=== PATIENT | male | born 1965 | race Caucasian/White ===

== ENCOUNTER → 2016-11-19 | Outpatient (CLI) | payer BC ==
[~2016-11-19] MED LIST: 00186-0372-20 IH; ASPIRIN 32325 MG/TAB PO; B-12 100 MCG PO; B-12500 MCG PO; BENADRYL50 MG PO; CLARITIN 1010 MG/TAB PO; CLEOCIN HCL300 MG PO; COUMADIN5 MG PO; CUBICIN 500MG500 MG IV; DIFLUCAN 100MG100 MG PO; DOXYCYCLINE 10100 MG PO; FLONASEALLERGY NS; GENTAMICIN180 MG/502 NS; IPRATROPIUM BROM3 M1 IH; LEVAQUIN 5500 MG/TA1 PO; LOVENOX 8080 MG/0.8 SQ; MILLIPRED DP5 MG PO; MOBIC15 MG PO; NORCO 325 MG-7.1 TAB PO; NYSTATIN OR100 MU/ML PO; PREDNISONE10 MG; PREDNISONE10 MG PO; PREDNISONE20 MG PO; PRILOSEC 20MG20 MG PO; PROVENTIL0.09 MG/A1 IH; SINGULAIR 110 MG/TAB PO; TYLENOL 500MG500 MG PO; VALIUM 5MG T5 MG/TAB PO; ZYRTEC 10MG10 MG PO
== END ==
LOC: COL.VAS 11-17 08:00
DX: I73.9 Peripheral vascular disease, unspecified (principal); F17.200 Nicotine dependence, unspecified, uncomplicated

== ENCOUNTER 2018-07-30 16:38 | Inpatient (IN) | payer BC ==
[~2018-07-30] VITALS: Ht 170.2 cm; Wt 95.8 kg
[2018-07-30] MEDS ORDERED: CHANTIX 1MG1 MG PO (17:21)
[2018-07-30 17:24] LABS: HEMATOCRIT 46.1 % (42.0-52.0); HEMOGLOBIN 15.5 g/dl (13.5-18.0); MEAN CELL VOLUME 85 fl (80.0-100.0); MEAN CORPUSCULAR HEMOGLOBIN 29 pg (27.0-31.0); MEAN CORPUSCULAR HGB CONC 34 g/dl (33.0-37.0); MEAN PLATELET VOLUME 10.3 fl (7.4-10.4); PLATELET COUNT 220 K/mm3 (130-400); RED BLOOD COUNT 5.44 M/mm3 (4.20-5.60); REDCELL DISTRIBUTION WIDTH-CV 15.3 % (11.5-14.5)
[2018-07-30 17:30] LABS: ALBUMIN 4.1 gm/dL (3.5-5.0); BILIRUBIN,TOTAL 1.3 mg/dL (0.0-1.0); CALCIUM 9.1 mg/dL (8.4-10.2); CREATININE, serum 0.89 mg/dL (0.66-1.25); POTASSIUM 4.2 mmol/L (3.4-5.0); TOTAL PROTEIN 8.2 gm/dL (6.4-8.2)
[2018-07-30 17:41] LABS: C-REACTIVE PROTEIN 16.5 mg/dL (0.0-0.9)
[2018-07-30 17:53] LABS: EOSINOPHIL 1 % (0-4); LYMPHOCYTE 14 % (20.0-51.0); NEUTROPHILS 78 % (42.0-75.2); PLATELET ESTIMATE NORMAL (NORMAL)
--- NOTE | 2018-07-30 20:00 | NUR ---
Pt arrived to room 351, transferred per stretcher by ED staff. Pt awake, a&o, cooperative c cares; at bedside. Pt/ oriented to room, unit policies et current POC. Questions invited et answered, both verbalize understanding. Pt/wi deny needs. Call light in reach. Will continue c admit process.
[2018-07-30 20:19] VITALS: BP 124/64; PULSE 108; TEMP 98.3
[2018-07-30 21:29] LABS: COLLECTION METHOD CLEAN CATCH
[2018-07-30 21:34] LABS: MUCOUS Present /lpf; PH 5 (5-8); SQUAMOUS EPITHELIAL 0-2 /hpf; URINE APPEARANCE Clear; URINE BACTERIA None Seen /hpf; URINE BILIRUBIN Negative (NEGATIVE); URINE BLOOD Negative (NEGATIVE); URINE COLOR Yellow; URINE GLUCOSE Negative (NEGATIVE); URINE KETONE Negative (NEGATIVE); URINE LEUKOCYTE ESTERASE Negative (NEGATIVE); URINE NITRATE Negative (NEGATIVE); URINE PROTEIN(semi-quant) Negative (NEGATIVE); URINE RBC 0-2 /hpf; URINE UROBILINOGEN Negative (NEGATIVE)
[2018-07-30 22:23] LABS: ARTERIAL BLD GAS O2 SATURATION 97.5 % (92-100); ARTERIAL BLD GAS TCO2 CT 19.8; ARTERIAL BLOOD GAS BASE EXCESS -4.3 (-2-2); ARTERIAL BLOOD GAS HCO3 18.9 meq/L (22-26); ARTERIAL BLOOD GAS PCO2 29.9 mmHg (35-45); ARTERIAL BLOOD GAS PO2 111.7 mmHg (80-100); ARTERIAL BLOOD GAS pH 7.42 (7.35-7.45)
[2018-07-30 23:42] VITALS: BP 91/57; PULSE 89; TEMP 97.5
[2018-07-31 04:44] VITALS: BP 123/79; PULSE 95; TEMP 97.6
[2018-07-31] MEDS ORDERED: VITAMIN D 1001000 IU PO (05:59)
[2018-07-31] MEDS ORDERED: ALLEGRA ALLERG180 MG PO (05:59)
[2018-07-31 07:49] VITALS: BP 100/51; PULSE 79; TEMP 98.2
[2018-07-31 08:35] LABS: BASO % 0.2 % (0.0-2.0); EOS % 0.1 % (0-4.0); GRAN # 8.4 (1.4-6.5); GRAN % 74.7 % (42.2-75.2); HEMATOCRIT 42.6 % (42.0-52.0); HEMOGLOBIN 14.2 g/dl (13.5-18.0); LYMPH # 1.5 (1.2-3.4); LYMPH % 13.6 % (20.0-51.0); MEAN CELL VOLUME 85 fl (80.0-100.0); MEAN CORPUSCULAR HEMOGLOBIN 28 pg (27.0-31.0); MEAN CORPUSCULAR HGB CONC 33 g/dl (33.0-37.0); MEAN PLATELET VOLUME 10.6 fl (7.4-10.4); MONO # 1.2 (0.1-0.6); MONO % 10.9 % (1.7-9.3); PLATELET COUNT 187 K/mm3 (130-400); REDCELL DISTRIBUTION WIDTH-CV 14.9 % (11.5-14.5)
[2018-07-31 08:46] LABS: CALCIUM 8.9 mg/dL (8.4-10.2); CREATININE, serum 0.59 mg/dL (0.66-1.25)
--- NOTE | 2018-07-31 09:30 | NUR ---
PT SITTING AT SIDE OF BED. PT A/O X4, COUGHING. CALLED DR. JONES TO GET DIET FOR PT. CALL LIGHT WITHIN REACH.
[2018-07-31 11:27] VITALS: BP 95/70; PULSE 95; TEMP 98.4
--- NOTE | 2018-07-31 11:54 | NUR ---
PT HAD SOME ACID REFLEX AND VOMITED. PT WAS GIVEN MAALOX FOR INDIGESTION.
--- NOTE | 2018-07-31 14:47 | NUR ---
SW met with patient about discharge planning. Patient lives independently at home with his . Patient's PCP is Dr. Woodward and he obtains prescriptions from [facility]. Patient uses [facility] but no other DME is reported and he does not use any home health services. Patient does not have a DPOA and is not interested in completing one at this time. SW does not anticipate any discharge needs.
[2018-07-31 15:42] VITALS: BP 106/63; PULSE 98; TEMP 98.4
--- NOTE | 2018-07-31 18:21 | NUR ---
PT IN BED WITH HOB ELEVATED. PT ATE SUPPER AND ATE 100% OF MEAL. PT ADVISED THAT THAT WAS THE FIRST TIME SINCE TUESDAY THAT HE FELT LIKE EATING AND ACTUALLY ATE ALL HIS FOOD. PT DENIES PAIN OR DISCOMFORT. PT WAS EDUCATED ON MEDICATIONS TAKING. PT CONTINUES TO COUGH AND NOSE STILL HAS CONGESTION. PT USES O2 AT 3L/OXYMASK. PT ADVISED THAT HE USES A CPAP AT NIGHT, BUT SINCE HIS NOSE IS STUFF-UP HE IS UNABLE TO USE HIS CPAP AT NIGHT. PT HAS NO NEEDS OR CONCERNS, CALL LIGHT WITHIN REACH.
[2018-07-31 19:35] VITALS: BP 104/59; PULSE 116; TEMP 99.4
--- NOTE | 2018-07-31 20:12 | NUR ---
Shift assessment complete. Pt resting in bed, awake, a&o, cooperative c cares. Pt denies pain or other c/o at this time. INT patent. Tele in place. PT denies needs. Call light in reach, will monitor.
[2018-08-01 01:00] VITALS: BP 109/57; PULSE 87; TEMP 100
[2018-08-01 04:20] VITALS: BP 104/66; PULSE 100; TEMP 98.5
--- NOTE | 2018-08-01 07:00 | NUR ---
Reported on to LEONA Hu. Assessment: INT in left AC CDI. Shortness of air at 36 resperations per minute. Sat at 96% on RA. Pulse 108. Productive cough with sticky pale yellow sputum. Pt complains of diffuse ache throughout body with headache. Pain 4. Does not want PRN APAP. Telemetry on. No SCDs/TEDs.
[2018-08-01 07:23] LABS: BASO % 0.5 % (0.0-2.0); EOS # 0.1 (0.0-0.7); EOS % 0.9 % (0-4.0); GRAN # 5.3 (1.4-6.5); GRAN % 65.5 % (42.2-75.2); HEMOGLOBIN 12.6 g/dl (13.5-18.0); LYMPH # 1.6 (1.2-3.4); LYMPH % 19.9 % (20.0-51.0); MEAN CELL VOLUME 85 fl (80.0-100.0); MEAN CORPUSCULAR HEMOGLOBIN 29 pg (27.0-31.0); MEAN CORPUSCULAR HGB CONC 34 g/dl (33.0-37.0); MEAN PLATELET VOLUME 11.1 fl (7.4-10.4); MONO % 12.7 % (1.7-9.3); PLATELET COUNT 175 K/mm3 (130-400); RED BLOOD COUNT 4.38 M/mm3 (4.20-5.60)
[2018-08-01 07:32] LABS: CALCIUM 8.5 mg/dL (8.4-10.2); CREATININE, serum 0.79 mg/dL (0.66-1.25); POTASSIUM 3.9 mmol/L (3.4-5.0)
[2018-08-01 08:27] VITALS: BP 125/74; PULSE 107; TEMP 98.2
[2018-08-01 11:01] VITALS: BP 111/67; PULSE 97; TEMP 98.9
[2018-08-01 17:20] VITALS: BP 117/74; PULSE 107; TEMP 98.5
--- NOTE | 2018-08-01 20:23 | NUR ---
Patient resting in bed, given tamiflu. Assessment cmopleted, denies pain. LUng sounds clear, abdminal sounds active, ulses +3. SBA/independent. Alert and oriented. ON droplet precautions for pending RVP and c.diff pending. Given new jug of water. NO further needs at this time.
[2018-08-01 22:09] VITALS: BP 118/65; PULSE 120; TEMP 98.1
[2018-08-02 00:29] VITALS: BP 97/49; PULSE 107; TEMP 98.9
[2018-08-02 03:33] VITALS: BP 120/60; PULSE 105; TEMP 98.5
--- NOTE | 2018-08-02 05:04 | NUR ---
Pt slept on/off last night. Continues to have cough. VSS, afebrile. NO rpeorts of pain. IVF infusing at 125 mls/hr.
--- NOTE | 2018-08-02 07:03 | NUR ---
Report given to LEONA Leung. Patient sitting up n bed watching tv. NO needs at this time.
[2018-08-02 07:27] LABS: HEMATOCRIT 37.1 % (42.0-52.0); HEMOGLOBIN 12.6 g/dl (13.5-18.0); MEAN CELL VOLUME 84 fl (80.0-100.0); MEAN CORPUSCULAR HEMOGLOBIN 29 pg (27.0-31.0); MEAN CORPUSCULAR HGB CONC 34 g/dl (33.0-37.0); MEAN PLATELET VOLUME 10.3 fl (7.4-10.4); PLATELET COUNT 185 K/mm3 (130-400); RED BLOOD COUNT 4.42 M/mm3 (4.20-5.60)
[2018-08-02 07:35] LABS: CALCIUM 8.2 mg/dL (8.4-10.2); CREATININE, serum 0.67 mg/dL (0.66-1.25); POTASSIUM 3.6 mmol/L (3.4-5.0)
[2018-08-02 08:00] VITALS: BP 135/86; PULSE 89; TEMP 97.9
[2018-08-02 08:20] LABS: BAND 10 % (0-10); EOSINOPHIL 3 % (0-4); NEUTROPHILS 36 % (42.0-75.2)
[2018-08-02 08:21] LABS: LYMPHOCYTE 39 % (20.0-51.0); PLATELET ESTIMATE NORMAL (NORMAL)
[2018-08-02] MEDS ORDERED: LEVAQUIN 750MG750 M1 PO (09:20)
[2018-08-02] MEDS ORDERED: TAMIFLU 75MG75 MG PO (09:21)
--- NOTE | 2018-08-02 09:48 | NUR ---
Pt is awake and A/Ox4, sitting up in bed. He remains on room air. He denies pain or discomfort. IVF are infusing into left AC without difficulty. Resp. are even and unlabored at rest. Pt does report productive cough, thin and white. Pt is up as tolerated in room. Pt denies any other needs, will monitor.
--- NOTE | 2018-08-02 11:21 | NUR ---
Pt was discharged home from hospital. All discharge instructions and paperwork was reviewed with pt and , both expressed understanding and had no questions. New prescriptions sent electronically to pharm. Saline lock removed, catheter tip intact. Pt was escorted out of facility by staff.
== END 2018-08-02 11:38 | disposition home or self-care (01) | DRG 871 ==
LOC: COL.ER 16:38 → MEDICAL 19:12
PROVIDERS: Emergency Medicine; Physician Assistant; ADMIT Internal Medicine
DX: A41.9 Sepsis, unspecified organism (principal); J12.3 Human metapneumovirus pneumonia; J96.01 Acute respiratory failure with hypoxia; Z86.718 Personal history of other venous thrombosis and embolism; K44.9 Diaphragmatic hernia without obstruction or gangrene; Z87.891 Personal history of nicotine dependence; Z88.2 Allergy status to sulfonamides; R19.7 Diarrhea, unspecified
CPT/HCPCS: 99223-AI; 99232-AI; 99239; A4216; A9284; J0696; J1644; J1956; J7030; J7512; Q9967

== ENCOUNTER 2019-10-19 13:00 | Outpatient (RCR) | payer BC ==
[~2019-10-19 13:00] MED LIST changes: +ALLEGRA ALLERG180 MG PO; +CHANTIX 1MG1 MG PO; +LEVAQUIN 750MG750 M1 PO; +TAMIFLU 75MG75 MG PO; +VITAMIN D 1001000 IU PO
== END 2019-11-01 12:26 | disposition home or self-care (01) ==
LOC: WSPT 13:00
DX: G60.0 Hereditary motor and sensory neuropathy (principal); M16.11 Unilateral primary osteoarthritis, right hip

== ENCOUNTER → 2019-11-28 | Outpatient (CLI) | payer BC | LOC: ZCOL.LAB 15:56 | DX: Z20.828 Contact with and (suspected) exposure to other viral communicable diseases (principal) ==

== ENCOUNTER 2020-07-04 12:55 | Outpatient (CLI) | payer BC ==
[~2020-07-04] VITALS: Ht 170.2 cm; Wt 84.7 kg
[~2020-07-04 12:55] MED LIST changes: -B-12 100 MCG PO; +B-121000 MCG PO
[2020-07-04] MEDS ORDERED: PEPCID 20MG TAB20 MG PO (13:34)
[2020-07-04] MEDS ORDERED: TRIAMCINOLONE A15 GM TP (13:35)
[2020-07-04 13:36] VITALS: BP 142/77; PULSE 77; TEMP 97.8
== END 2020-07-04 15:30 | disposition home or self-care (01) ==
LOC: EUO 12:55
DX: L50.1 Idiopathic urticaria (principal); Z79.899 Other long term (current) drug therapy
CPT/HCPCS: J2357

== ENCOUNTER 2020-08-01 13:52 | Outpatient (CLI) | payer BC ==
[~2020-08-01] VITALS: Ht 170.2 cm; Wt 84.3 kg
[~2020-08-01 13:52] MED LIST changes: +PEPCID 20MG TAB20 MG PO; +TRIAMCINOLONE A15 GM TP
[2020-08-01 14:27] VITALS: BP 134/75; PULSE 83; TEMP 98.1
== END 2020-08-01 14:45 | disposition home or self-care (01) ==
LOC: EUO 13:52
DX: L50.1 Idiopathic urticaria (principal); Z79.899 Other long term (current) drug therapy
CPT/HCPCS: J2357

== ENCOUNTER 2020-08-29 14:00 | Outpatient (CLI) | payer BC ==
[~2020-08-29] VITALS: Ht 170.2 cm; Wt 84.1 kg
[2020-08-29 14:16] VITALS: BP 12/65; PULSE 94; TEMP 98.1
== END 2020-08-29 14:30 | disposition home or self-care (01) ==
LOC: EUO 14:00
DX: L50.1 Idiopathic urticaria (principal)
CPT/HCPCS: J2357

== ENCOUNTER 2020-09-26 14:05 | Outpatient (CLI) | payer BC ==
[~2020-09-26] VITALS: Ht 170.2 cm; Wt 81.8 kg
[2020-09-26 14:37] VITALS: BP 118/83; PULSE 85; TEMP 98.5
== END 2020-09-26 18:15 | disposition home or self-care (01) ==
LOC: EUO 14:05
DX: L50.1 Idiopathic urticaria (principal); Z79.899 Other long term (current) drug therapy
CPT/HCPCS: J2357